=== PATIENT | female | born 1975 | race Caucasian/White ===

== ENCOUNTER 2020-04-27 15:48 | Emergency (ER) | payer BC ==
--- NOTE | 2020-04-27 16:19 | EDM.PDOC ---
ED HPI GENERAL MEDICAL PROBLEM - General Chief Complaint: General Stated Complaint: LOW MID BACK PAIN Time Seen by Provider: 04/27/20 16:10 Source of Information: Reports: Patient History Limitations: Reports: No Limitations - History of Present Illness INITIAL COMMENTS - FREE TEXT/NARRATIVE: 44 YO WF PRESENTS TO ER COMPLAINING OF ABDOMINAL PAIN WHICH BEGAN THIS AM. PT REPORTS PAIN IS CRAMPY IN CHARACTER AND RADIATES TO HER BACK. PT REPORTS PAIN FEELS LIKE PERIOD CRAMPS BUT MORE SEVERE. PT REPORTS LMP 04/08/2020 AND WAS NORMAL FOR HER BUT A LITTLE HEAVY. PT DENIES VAGINAL DISCHARGE, PAIN WITH INTERCOURSE, DYSURIA, FREQUENCY OR URGENCY. PT DENIES CONSTIPATION OR DIARRHEA AND STATES SHE HAS BEEN PASSING GAS WITHOUT DIFFICULTY. PT DENIES FEVER/CHILLS, NO VOMITING BUT NAUSEA WHEN THE PAIN COMES ON. PT WITH REMOTE HISTORY OF APPENDECTOMY. Onset: Today Location: Reports: Abdomen, Back Quality: Reports: Other (CRAMPING) Severity: Moderate Improves with: Reports: None Worsens with: Reports: None Associated Symptoms: Reports: No Other Symptoms, Nausea/Vomiting Lower Back Pain Score (Numeric/FACES): 7 - Related Data Allergies Allergy/AdvReac Type Severity Reaction Status Date / Time No Known Drug Allergies Allergy Cannot Verified 04/27/20 15:52 Remember Home Meds: Home Meds . [No Known Home Meds] 04/27/20 [History] ED ROS GENERAL - Review of Systems Review Of Systems: See Below Constitutional: Reports: No Symptoms HEENT: Reports: No Symptoms Respiratory: Reports: No Symptoms Cardiovascular: Reports: No Symptoms Endocrine: Reports: No Symptoms GI/Abdominal: Reports: Abdominal Pain, Nausea : Reports: No Symptoms Musculoskeletal: Reports: No Symptoms Skin: Reports: No Symptoms Neurological: Reports: No Symptoms Psychiatric: Reports: No Symptoms Hematologic/Lymphatic: Reports: No Symptoms Immunologic: Reports: No Symptoms ED EXAM, GENERAL - Physical Exam Exam: See Below Exam Limited By: No Limitations General Appearance: Alert, WD/WN, No Apparent Distress Head: Atraumatic, Normocephalic Neck: Normal Inspection, Supple, Non-Tender, Full Range of Motion Respiratory/Chest: No Respiratory Distress, Lungs Clear, Normal Breath Sounds, No Accessory Muscle Use, Chest Non-Tender Cardiovascular: Normal Peripheral Pulses, Regular Rate, Rhythm, No Edema, No Gallop, No JVD, No Murmur, No Rub GI/Abdominal: Normal Bowel Sounds, Distended, Tender Back Exam: Normal Inspection, Full Range of Motion, NT Extremities: Normal Inspection, Normal Range of Motion, Non-Tender, Normal Capillary Refill, No Pedal Edema Neurological: Alert, Oriented, CN II-XII Intact, Normal Cognition, Normal Gait, Normal Reflexes, No Motor/Sensory Deficits Psychiatric: Normal Affect, Normal Mood Skin Exam: Warm, Dry, Intact, Normal Color, No Rash Lymphatic: No Adenopathy Course - Vital Signs Last Recorded V/S: Last Vital Signs Temp 36.9 C 04/27/20 15:52 Pulse 79 04/27/20 15:52 Resp 20 04/27/20 15:52 BP 194/95 H 04/27/20 15:52 Pulse Ox 99 04/27/20 15:52 - Orders/Labs/Meds Orders: Active Orders 24 hr Category Date Time Status Abdomen Pelvis w Cont [CT] Stat Exams 04/27/20 16:40 Ordered Sodium Chloride 0.9% [Normal Saline] 1,000 ml Med 04/27/20 16:40 Active IV .BOLUS Sodium Chloride 0.9% [Normal Saline] 50 ml Med 04/27/20 16:45 Active IV ASDIRECTED Medication Orders Sodium Chloride (Normal Saline) 1,000 mls @ 999 mls/hr IV .BOLUS ONE Stop: 04/27/20 17:40 Last Admin: 04/27/20 16:56 Dose: 999 mls/hr Documented by: ALEX Sodium Chloride (Normal Saline) 50 mls @ 200 mls/min IV ASDIRECTED TONY Last Admin: 04/27/20 17:12 Dose: 200 mls/min Documented by: DINH Labs: Laboratory Tests 04/27/20 04/27/20 04/27/20 Range/Units 16:10 16:10 16:50 WBC 7.56 (5.00-10.00) 10^3/uL RBC 4.22 (3.80-5.50) 10^6/uL Hgb 7.2 L (12.0-16.0) g/dL Hct 25.3 L (37.0-47.0) % MCV 60.0 L (82.0-92.0) fL MCH 17.1 L (27.0-31.0) pg MCHC 28.5 L (32.0-36.0) g/dL RDW 19.7 H (11.5-14.5) % Plt Count 364 (150-400) 10^3/uL MPV 9.6 (7.4-10.4) fL Immature Gran % (Auto) 0.3 (0.0-5.0) % Neut % (Auto) 66.0 (50.0-70.0) % Lymph % (Auto) 24.3 (20.0-40.0) % [place] % (Auto) 6.3 (2.0-8.0) % Eos % (Auto) 1.6 (1.0-3.0) % Baso % (Auto) 1.5 H (0.0-1.0) % Neut # (Auto) 4.99 (2.50-7.00) 10^3/uL Lymph # (Auto) 1.84 (1.00-4.00) 10^3/uL [place] # (Auto) 0.48 (0.10-0.80) 10^3/uL Eos # (Auto) 0.12 (0.10-0.30) 10^3/uL Baso # (Auto) 0.11 H (0.00-0.10) 10^3/uL Immature Gran # (Auto) 0.02 (0.00-0.50) 10^3/uL Sodium (136-145) mmol/L Potassium (3.3-5.3) mmol/L Chloride (98-115) mmol/L Carbon Dioxide (21.0-32.0) mmol/L Anion Gap (5-15) mmol/L BUN (6-25) mg/dL Creatinine (0.51-1.17) mg/dL Est Cr Clr Drug Dosing mL/min Estimated GFR (MDRD) mL/min Glucose (75 - 99) mg/dL Calcium (8.7-10.3) mg/dL Total Bilirubin (0.2-1.0) mg/dL AST (15-37) U/L ALT (12-78) U/L Alkaline Phosphatase (46-116) IU/L Total Protein (6.4-8.2) g/dL Albumin (3.00-4.80) g/dL Lipase (73-393) U/L Specimen Type Urincc Urine Color Yellow (YELLOW) Urine Appearance Slightly cloudy H (CLEAR) Urine pH 6.5 (5.0-9.0) Ur Specific [place] 1.025 (1.005-1.030) Urine Protein Negative (NEGATIVE) mg/dL Urine Glucose (UA) Negative (NEGATIVE) mg/dL Urine Ketones Negative (NEGATIVE) mg/dL Urine Occult Blood Small H (NEGATIVE) Urine Nitrite Negative (NEGATIVE) Urine Bilirubin Negative (NEGATIVE) Urine Urobilinogen 0.2 (0.2-1.0) E.U./dL Ur Leukocyte Esterase Negative (NEGATIVE) Urine RBC 0-5 (0-5) /HPF Urine WBC 0-5 (0-5) /HPF Ur Epithelial Cells Few /LPF Urine Bacteria Few (NONE TO FEW) /HPF Urine HCG, Qual Negative (NEGATIVE) 04/27/20 Range/Units 16:50 WBC (5.00-10.00) 10^3/uL RBC (3.80-5.50) 10^6/uL Hgb (12.0-16.0) g/dL Hct (37.0-47.0) % MCV (82.0-92.0) fL MCH (27.0-31.0) pg MCHC (32.0-36.0) g/dL RDW (11.5-14.5) % Plt Count (150-400) 10^3/uL MPV (7.4-10.4) fL Immature Gran % (Auto) (0.0-5.0) % Neut % (Auto) (50.0-70.0) % Lymph % (Auto) (20.0-40.0) % [place] % (Auto) (2.0-8.0) % Eos % (Auto) (1.0-3.0) % Baso % (Auto) (0.0-1.0) % Neut # (Auto) (2.50-7.00) 10^3/uL Lymph # (Auto) (1.00-4.00) 10^3/uL [place] # (Auto) (0.10-0.80) 10^3/uL Eos # (Auto) (0.10-0.30) 10^3/uL Baso # (Auto) (0.00-0.10) 10^3/uL Immature Gran # (Auto) (0.00-0.50) 10^3/uL Sodium 139 (136-145) mmol/L Potassium 3.3 (3.3-5.3) mmol/L Chloride 103 (98-115) mmol/L Carbon Dioxide 23.7 (21.0-32.0) mmol/L Anion Gap 15.6 H (5-15) mmol/L BUN 17 (6-25) mg/dL Creatinine 0.67 (0.51-1.17) mg/dL Est Cr Clr Drug Dosing 101.35 mL/min Estimated GFR (MDRD) > 60 mL/min Glucose 101 H (75 - 99) mg/dL Calcium 8.8 (8.7-10.3) mg/dL Total Bilirubin 0.3 (0.2-1.0) mg/dL AST 9 L (15-37) U/L ALT 14 (12-78) U/L Alkaline Phosphatase 62 (46-116) IU/L Total Protein 7.4 (6.4-8.2) g/dL Albumin 3.67 (3.00-4.80) g/dL Lipase 93 (73-393) U/L Specimen Type Urine Color (YELLOW) Urine Appearance (CLEAR) Urine pH (5.0-9.0) Ur Specific [place] (1.005-1.030) Urine Protein (NEGATIVE) mg/dL Urine Glucose (UA) (NEGATIVE) mg/dL Urine Ketones (NEGATIVE) mg/dL Urine Occult Blood (NEGATIVE) Urine Nitrite (NEGATIVE) Urine Bilirubin (NEGATIVE) Urine Urobilinogen (0.2-1.0) E.U./dL Ur Leukocyte Esterase (NEGATIVE) Urine RBC (0-5) /HPF Urine WBC (0-5) /HPF Ur Epithelial Cells /LPF Urine Bacteria (NONE TO FEW) /HPF Urine HCG, Qual (NEGATIVE) Meds: Medications Generic Name Dose Route Start Last Admin Trade Name Freq PRN Reason Stop Dose Admin Sodium Chloride 1,000 mls @ 999 mls/hr 04/27/20 16:40 04/27/20 16:56 Normal Saline IV 04/27/20 17:40 999 mls/hr .BOLUS ONE Administration Sodium Chloride 50 mls @ 200 mls/min 04/27/20 16:45 04/27/20 17:12 Normal Saline IV 200 mls/min ASDIRECTED TONY Administration Discontinued Medications Generic Name Dose Route Start Last Admin Trade Name Faustino PRN Reason Stop Dose Admin Iopamidol 100 ml 04/27/20 16:44 04/27/20 17:12 Isovue-370 (76%) IV 04/27/20 16:45 75 ml ONETIME ONE Administration Morphine Sulfate 4 mg 04/27/20 16:41 04/27/20 16:54 Morphine IM 04/27/20 16:42 4 mg ONETIME ONE Administration Ondansetron HCl 4 mg 04/27/20 16:40 04/27/20 16:56 Zofran IVPUSH 04/27/20 16:41 4 mg ONETIME ONE Administration - Radiology Interpretation Free Text/Narrative:: LUMBAR SPINE- NAD CT ABD/[id number] enlarged heterogeneous uterus with a displaced left ovary 46mm ovarian cyst. - Re-Assessments/Exams Free Text/Narrative Re-Assessment/Exam: 04/27/20 18:02 pt reports pain has improved. pt understands concerns for possible ovarian torsion, need for pelvic U/S and enlarged uterus of unknown etiology. pt recommended for transfer to [facility]- Dr Simms [employer] OFFICER will see in ER; Dr Stubbs ER attending accepted transfer at 1800. Departure - Departure Time of Disposition: 18:06 Disposition: DC/Tfer to Acute Hospital 02 Condition: Serious Clinical Impression: Enlarged uterus, Pelvic pain Ovarian cyst Qualifiers: Laterality: left Qualified Code(s): N83.202 - Unspecified ovarian cyst, left side Profound anemia Qualifiers: Anemia type: unspecified type Qualified Code(s): D64.9 - Anemia, unspecified - Discharge Information Instructions: Pelvic Pain, Female, [id number], Ovarian Cyst, [id number], Pelvic Mass, Female, Blood Transfusion, Adult, Care After Referrals: Vy Epps PA-C [Primary Care Provider] - Forms: ED Department Discharge, Interfacility Transfer EMTALA Additional Instructions: 1. lower abdominal pain 2. ovarian cyst with displacement into left abdomen- rule out ovarian torsion 3. enlarged uterus- fibroid vs neoplasm 4. low hemoglobin- consider transfusion 5. go immediately to [facility] ER for further evaluation and treatment Sepsis Event Note (ED) - Evaluation Sepsis Screening Result: No Definite Risk - Focused Exam Vital Signs: Vital Signs Temp Pulse Resp BP Pulse Ox 04/27/20 15:52 36.9 C 79 20 194/95 H 99 - My Orders Last 24 Hours: My Active Orders 04/27/20 16:40 Abdomen Pelvis w Cont [CT] Stat Sodium Chloride 0.9% [Normal Saline] 1,000 ml IV .BOLUS 04/27/20 16:45 Sodium Chloride 0.9% [Normal Saline] 50 ml IV ASDIRECTED - Assessment/Plan Last 24 Hours: My Active Orders 04/27/20 16:40 Abdomen Pelvis w Cont [CT] Stat Sodium Chloride 0.9% [Normal Saline] 1,000 ml IV .BOLUS 04/27/20 16:45 Sodium Chloride 0.9% [Normal Saline] 50 ml IV ASDIRECTED Assessment:: 1. lower abdominal pain 2. ovarian cyst with displacement into left abdomen- rule out ovarian torsion 3. enlarged uterus- fibroid vs neoplasm 4. low hemoglobin- consider transfusion 5. go immediately to [facility] ER for further evaluation and treatment Plan: 1. transfer to [facility]- Dr Stubbs and Dr Simms [employer]ICER accepting
--- NOTE | 2020-04-27 16:43 | CR ---
[id number] RAD/RAD Lumbar Spine 2-3V Exam: RAD Lumbar Spine 2-3V Indication:LOWER BACK PAIN. Comparison: No prior imaging for comparison. Discussion: Vertebral bodies are in normal alignment. No fracture or compression deformity. No osseous lesion. Intervertebral disc heights are well-preserved. Impression: Negative examination of the spine. Alex Alcazar MD 04/27/20 [id number] Thank you for allowing us to participate in the care of your patient.
[2020-04-27] MEDS: Morphine 10 MG/ML Syringe IM ONE (16:54)
[2020-04-27] MEDS: Sodium Chloride 0.9% 1,000 ML IV ONE (16:56)
[2020-04-27] MEDS: Ondansetron 4 MG/2 ML SDV IVPUSH ONE (16:56)
[2020-04-27] MEDS: Iopamidol 755 Mg/ML 100 ML Bottle IV ONE (17:12)
[2020-04-27] MEDS: Sodium Chloride 0.9% 50 ML IV SCH (17:12)
[2020-04-27 17:14] LABS: ANION GAP 15.6 mmol/L (5-15); CHLORIDE,CL 103 mmol/L (98-115); SODIUM,NA 139 mmol/L (136-145)
--- NOTE | 2020-04-27 17:45 | CT ---
[id number] CT/CT Abdomen Pelvis W IV EXAM: ABDOMEN AND PELVIS CT WITH CONTRAST INDICATION: PAIN. COMPARISON: None. DISCUSSION: There is marked uterine enlargement of the uterus measuring about 23 x 19 x 12 cm and an overall heterogeneous density. This could be seen with leiomyomata, endometrial carcinoma and other benign and malignant uterine neoplasms. The left ovary is displaced into the left midabdomen and demonstrates a 46 mm cyst. The right ovary is not well seen. There is a small amount of free fluid in the pelvis. Small sliding type hiatus hernia. The liver, gallbladder, spleen, pancreas, adrenal glands, kidneys, small bowel, large bowel are normal in appearance. The appendix is not identified and per patient report has been removed. The osseous structures are unremarkable. IMPRESSION: 1. Significant uterine enlargement. This could be from benign or malignant neoplasms of the myometrium or endometrium. 2. 46 mm left ovarian cyst. 3. Small volume free fluid in the pelvis. Raad Wan MD 04/27/20 [id number] Thank you for allowing us to participate in the care of your patient.
== END 2020-04-27 18:30 ==
LOC: KA.ED 15:48
DX: N83.202 Unspecified ovarian cyst, left side (principal); N85.2 Hypertrophy of uterus; D64.9 Anemia, unspecified
CPT/HCPCS: 36415; 72100; 74177; 80053; 81001; 81025; 83690; 85025; 86850; 86900; 86901; 96361; 96372; 96374; 99284; 99285-25; J2270; J2405; J7030; J7050; Q9967